=== PATIENT | male | born 1975 | race Caucasian/White ===

== ENCOUNTER 2016-06-10 08:16 | Observation (INO) | payer OTHER ==
[2016-05-27 14:40] LABS: BASO % 0.2 %; BASO ABS # 0.02 K/uL (0-0.2); COMPLETE YES; EOS % 0.8 %; HEMATOCRIT 41.6 % (42-52); IG% 0.2 %; LYMPH ABS # 2.18 K/uL (1.2-3.4); MEAN CELL VOLUME 89.8 fL (80-100); MEAN CORPUSCULAR HEMOGLOBIN 30.5 pg (25-34); MEAN CORPUSCULAR HGB CONC 33.9 g/dl (32-36); MEAN PLATELET VOLUME 10.1 fL (7.4-10.4); MONO % 6.3 %; NEUT % 68.5 %; PLATELET COUNT 252 K/uL (130-400); RED BLOOD COUNT 4.63 M/uL (4.7-6.1); WHITE BLOOD COUNT 9.07 K/uL (4.8-10.8)
--- NOTE | 2016-06-09 14:07 | HISTORY & PHYSICAL EXAMINATION ---
DATE OF ADMISSION: 06/10/2016 CHIEF COMPLAINT: He presents with low back pain with lower extremity difficulty with numbness and weakness. HISTORY OF PRESENT ILLNESS: Butch is a 41-year-old male with lower extremity back pain with some right leg numbness and tingling, a little bit of weakness as well. We have been following him for 3 years in duration now. We had done a procedure back here just recently and he has recovered pretty well with that. He recently just had some low back pain with the associated weakness and numbness in his leg. We worked him up with a myelogram. It does show a large disk herniation at L5-S1 on the left hand side, which is his operated level. More than likely the only explanation is some disk material has reherniated out of his involved segment at the spine, causing some nerve root compression at the L5-S1 level on the left neural foramen. PAST MEDICAL HISTORY: All negative. PAST SURGICAL HISTORY: Includes a hernia repair, bilateral knee surgeries, previous procedure L5-S1. ALLERGIES: PENICILLIN. CURRENT MEDICATIONS: Include tramadol and Colace. FAMILY HISTORY: Positive for heart disease, stroke. Negative for diabetes, blood clots, DVTs. SOCIAL HISTORY: He is single. Rarely drinks. Smokes about a 1/2 pack of cigarettes a day. Actually half can of chewing tobacco a day for 20 years. REVIEW OF SYSTEMS: CONSTITUTIONAL: Positive for fatigue. CARDIOVASCULAR: Positive for swelling in hands and feet. GASTROINTESTINAL: Positive for change in bowel movements. NEUROLOGICAL: Positive for numbness and tingling. MUSCULOSKELETAL: Positive for joint pain, stiffness, weakness, and cramps. PHYSICAL EXAMINATION: CONSTITUTIONAL: Alert and oriented x3, appropriately dressed for his age. VITAL SIGNS: He is 6 foot 3 inches, 300 pounds. CARDIAC: Brisk capillary refill in distal extremities. RESPIRATORY: Equal bilateral breath sounds. ABDOMEN: Soft, nontender to palpation. No hepato or organomegaly noted. INTEGUMENTARY: No skin rashes or lesions. No redness, swelling. MUSCULOSKELETAL: He does have some paresthesias and numbness and tingling down his left leg. He has some weakness of the left great toe as well as with push off strength on the left hand side. He also has a positive Lasgue sign with straight leg raise, raising on the left hand side. He has difficult time coming up to a full upright position. DIAGNOSTIC STUDIES: No x-rays done today. CT myelogram is fairly impressive this demonstrating cauda equina compression, nerve root compromise at L5-S1 due to a disk herniation affecting the left neural foramen. 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 PLAN: At this time, we are going to get him ready for preop. We have offered him laminectomy with a diskectomy at L5-S1 to remove that herniated segment affecting the left nerve root at that level. We did discuss the procedure with him. He wants to go through with that. Does understand all the risks and possible benefits of the surgery. We did discuss expectations postoperatively as well. We will follow him up approximately 10-14 days postop and remove sutures and renew any pain medication. We will discuss physical therapy at that time as well. KEMAL
[~2016-06-10] VITALS: Ht 190.5 cm; Wt 140.0 kg
[2016-06-10] VITALS (8 sets, daily range): BP systolic 101–137; BP diastolic 55–93; PULSE 64–109; TEMP 36.5–36.9; O2SAT 93–97; Ht 190.5 cm; Wt 140.0 kg
[~2016-06-10 08:16] MED LIST: CLINDAMYCIN 600 MG/54 ML D5W IV SCH; SODIUM CHLORIDE 0.9% 1000ML 1,000 ML IV SCH; TRAM-453 PO; oxycodone PO
[2016-06-10] MEDS ORDERED: MIDAZOLAM HCL 1 MG/ML 2ML VIAL ONE (08:55)
[2016-06-10] MEDS ORDERED: FENTANYL CITRATE INJ 50 MCG/1 ML 2 ML VIAL ONE ×2 (08:55)
--- NOTE | 2016-06-10 10:21 | History & Physical Bridge Note ---
H&P Re-Evaluation Bridge Note: I have examined the patient, reviewed the History & Physical and in the interval since the performance of the History & Physical I have noted the following changes of clinical significance: No changes noted
[2016-06-10] MEDS ORDERED: PROPOFOL IV EMULSION 10 MG/ML 20 ML VIAL IV ONE (11:27)
[2016-06-10] MEDS ORDERED: SUCCINYLCHOLINE CHLORIDE 20 MG/ML 10 ML VIAL IV ONE (11:27)
[2016-06-10] MEDS ORDERED: ONDANSETRON INJ 2 MG/ML 2 ML VIAL ONE (11:27)
[2016-06-10] MEDS ORDERED: LIDOCAINE HCL 2% 2 ML VIAL (20MG/ML) ONE (11:27)
[2016-06-10] MEDS ORDERED: NEOSTIGMINE METHYLSULFATE 5 MG/5 ML SYR ONE (11:27)
[2016-06-10] MEDS ORDERED: GLYCOPYRROLATE INJ 0.2 MG/ML VIAL ONE (11:27)
[2016-06-10] MEDS ORDERED: CISATRACURIUM BESYLATE IV SOLN 2 MG/ML 10 ML VIAL ONE (11:27)
[2016-06-10] MEDS ORDERED: DEXAMETHASONE SOD INJ 4 MG/ML VIAL ONE (11:27)
[2016-06-10] MEDS ORDERED: LARYING-O-JET KIT (LTA) EXT ONE ×2 (11:27)
[2016-06-10] MEDS ORDERED: HYDROmorphone INJ 2 MG/ML SYR/VIAL ONE ×2 (11:28→13:00)
[2016-06-10] MEDS ORDERED: THROMBIN FOR SOLN 20000 UNIT KIT TOP ONE (12:35)
[2016-06-10] MEDS ORDERED: GELATIN SPONGE SZ 100 TOP ONE (12:36)
[2016-06-10] MEDS ORDERED: BUPIVACAINE/EPINEPHRINE 0.5% MPF 1:200,000 30 ML VIAL INJ ONE (12:37)
[2016-06-10] MEDS ORDERED: BACITRACIN 50000 UNIT VIAL IR ONE (12:37)
[2016-06-10] MEDS ORDERED: VANCOMYCIN HCL 1000MG/20ML VIAL TOP ONE (12:41)
--- NOTE | 2016-06-10 12:49 | [facility] Post Operative Brief Note ---
Immediate Operative Summary Operative Date Jun 10, 2016. 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 Procedure(s) Performed L5-S1 Revision Discectomy, hardware removal at L5-S1 on left Surgeon Dr. Michele Martines Dynamometer Repairer Surgeon(s) Yonny Arguello PA-C Estimated Blood Loss 200ml Findings stenosis , disc herniation Specimens A. Explanted hardware Complication(s) None Disposition Recovery Room / PACU
[2016-06-10] MEDS ORDERED: LORAZEPAM INJ 1 MG in SYRINGE 0.5 ML IV PRN (13:00)
[2016-06-10] MEDS ORDERED: PROMETHAZINE HCL INJ 12.5 MG in SODIUM CHLORIDE 0.9% 50ML 50 ML IV PRN ×4 (13:00)
[2016-06-10] MEDS ORDERED: MAGNESIUM HYDROXIDE SUSP 30 ML UDC PO PRN (13:00)
[2016-06-10] MEDS ORDERED: NALOXONE HCL 0.4 MG/1 ML VIAL/CARP IV PRN (13:00)
[2016-06-10] MEDS ORDERED: METOCLOPRAMIDE HCL INJ 5 MG/ML 2 ML VIAL IV PRN (13:00)
[2016-06-10] MEDS ORDERED: OXYCODONE/ACETAMINOPHEN 5-325 TAB PO PRN ×2 (13:00)
[2016-06-10] MEDS ORDERED: HYDROmorphone INJ 1 MG/ML SYR IV PRN ×2 (13:00)
[2016-06-10] MEDS ORDERED: EpHEDrine SULFATE INJ 50 MG/ML AMP IV PRN (13:00)
[2016-06-10] MEDS ORDERED: ONDANSETRON INJ 2 MG/ML 2 ML VIAL IV PRN (13:00)
[2016-06-10] MEDS ORDERED: ATROPINE SULFATE 0.1 MG/ML 5ML SYR IV PRN (13:00)
[2016-06-10] MEDS ORDERED: ACETAMINOPHEN 325 MG TAB PO PRN (13:00)
[2016-06-10] MEDS ORDERED: LORAZEPAM 1 MG TAB PO PRN (13:00)
[2016-06-10] MEDS ORDERED: FLUMAZENIL 0.1 MG/1 ML 10 ML VIAL IV PRN (13:00)
--- NOTE | 2016-06-10 13:44 | OPERATIVE REPORT ---
DATE OF OPERATION: 06/10/2016 PREOPERATIVE DIAGNOSIS: Disc herniation, bone osteophyte formation, L5-S1 lumbar spine. POSTOPERATIVE DIAGNOSIS: Same. PROCEDURES: Included a lumbar spine decompression revision strategies to lumbar spine, foraminotomy of L5 and S1, removal of osteophyte impinging on the 5 nerve root. SURGEON: Dr. Martines. PATIENT SITTER: Yonny Arguello. COMPLICATIONS: Zero. BLOOD LOSS: Less than 200 mL. ANESTHETIC: General. DESCRIPTION OF PROCEDURE: The patient was taken to the operating room, a general intubated anesthetic provided to the patient, placed prone, prepped and draped sterile. We made a skin incision in his old skin incision essentially, dissecting on the same plane down to the lamina, transverse processes. Over the prior pedicle screws that had been inserted, we put in a deep self-retaining retractor. We then used revision techniques to open up the dural area. We did foraminotomies of L5, foraminotomies of S1. I used an osteotome to knock off some of the bone that had ingrown into the nerve root. It almost appeared he possibly had an old fracture with bone impinging on the nerve root. There was some disc material. We completely freed up the 5 nerve root, completely freed up the S1 nerve root, we did remove the bone. I was pleased with the decompression at the conclusion. We then irrigated, closed in layers with #1 Vicryl suture, 2-0 in the subcuticular layer, and 3-0 nylon on the skin. Sterile dressing applied. The patient returned to recovery room satisfactory and stable. No apparent complications. Sponge and needle count correct. I attest to the content of the Intraoperative Record and any orders documented therein. Any exceptio ns are noted below.
--- NOTE | 2016-06-10 13:50 | Anesthesiology Progress Note ---
Anesthesia Post Op Note Date & Time Jun 10, 2016 at 13:49 Vital Signs Pain Intensity: 2 Vital Signs Past 12 Hours Date Time Temp Pulse Resp B/P Pulse Ox O2 Delivery O2 Flow Rate FiO2 06/10/16 13:43 123/87 06/10/16 13:41 88 17 98 06/10/16 13:41 86 17 06/10/16 13:39 115/65 06/10/16 13:36 63 12 06/10/16 13:36 62 12 97 06/10/16 13:33 133/85 06/10/16 13:31 67 11 06/10/16 13:31 68 11 98 06/10/16 13:29 109/61 06/10/16 13:26 90 16 06/10/16 13:26 90 16 97 06/10/16 13:24 101/76 06/10/16 13:21 86 15 97 06/10/16 13:21 88 15 06/10/16 13:20 36.5 06/10/16 13:17 19 06/10/16 13:17 80 19 99 06/10/16 13:14 126/91 06/10/16 13:12 16 94 06/10/16 13:12 85 16 06/10/16 13:08 133/87 06/10/16 13:07 79 15 06/10/16 13:07 79 15 100 06/10/16 13:04 124/79 06/10/16 13:02 73 13 100 06/10/16 13:02 73 13 06/10/16 13:00 Nasal Cannula 4 06/10/16 12:59 127/80 06/10/16 12:57 78 16 06/10/16 12:57 77 16 100 06/10/16 12:53 122/83 06/10/16 12:52 80 16 06/10/16 12:52 80 16 100 06/10/16 12:48 117/77 06/10/16 12:47 80 14 98 06/10/16 12:47 79 14 06/10/16 12:47 36.1 94 16 110/79 97 Mask 10 06/10/16 08:54 36.9 75 20 137/93 95 Room Air Notes Mental Status: alert / awake / arousable, participated in evaluation Pt Amnestic to Procedure: Yes Nausea / Vomiting: adequately controlled Pain: adequately controlled Airway Patency, RR, SpO2: stable & adequate BP & HR: stable & adequate Hydration State: stable & adequate Anesthetic Complications: no major complications apparent
[2016-06-10] MEDS ORDERED: IV FLUIDS COMPLETED PRN (14:15)
[2016-06-10] MEDS ORDERED: SODIUM CHLORIDE 0.9% 1000ML 1,000 ML IV SCH (15:00)
[2016-06-10] MEDS: HYDROmorphone INJ 2 MG/ML SYR/VIAL IV PRN ×2 (15:15→22:59)
[2016-06-10] MEDS: KETOROLAC TROMETHAMINE 30 MG/ML VIAL IV SCH ×2 (15:37→21:31)
[2016-06-10] MEDS: CLINDAMYCIN IV 600 MG in DEXTROSE 5% ADD-VANTAGE 50ML 50 ML IV SCH (17:54)
[2016-06-10] MEDS: DEXAMETHASONE INJ 10 MG in SYRINGE 0 ML IV SCH (17:55)
[2016-06-10] MEDS ORDERED: NURSING VERBAL MED ORDER ONE (19:15)
[2016-06-10] MEDS ORDERED: COUGH DROP (SUGAR FREE) LOZ 24 LOZ/1 BOX ONE (23:25)
[2016-06-10] MEDS ORDERED: NURSING DECISION MEDICATION ORDER SCH (23:30)
[2016-06-11] MEDS ORDERED: COUGH DROP (SUGAR FREE) LOZ 24 LOZ/1 BOX PO PRN (00:30)
[2016-06-11] MEDS: CLINDAMYCIN IV 600 MG in DEXTROSE 5% ADD-VANTAGE 50ML 50 ML IV SCH (01:45)
[2016-06-11] MEDS: DEXAMETHASONE INJ 10 MG in SYRINGE 0 ML IV SCH ×2 (01:45→09:03)
[2016-06-11] MEDS: KETOROLAC TROMETHAMINE 30 MG/ML VIAL IV SCH ×2 (03:41→09:03)
[2016-06-11 03:52] VITALS: BP 119/55; PULSE 91; TEMP 36.7; O2SAT 92
[2016-06-11] MEDS ORDERED: BISACODYL 5 MG TABEC PO PRN (06:00)
[2016-06-11] MEDS ORDERED: BISACODYL 10 MG SUPP PR PRN (06:00)
--- NOTE | 2016-06-11 07:34 | Discharge Instructions ---
Discharge Instructions Admission Reason for Admission: Lumbar Intervertebral Disc Disorder W/Myelopathy Discharge Discharge Diagnosis / Problem: stenosis Discharge Goals Goal(s): Improve function Activity Recommendations Activity Limitations: as noted below Lifting Limitations: no more than 5 pounds Exercise/Sports Limitations: until after follow-up appointment May Resume Sexual Activity: after follow-up appointment Shower/Bathe: keep incision dry Driving or Machine Use: home, rest, recover . Current Hospital Diet Patient's current hospital diet: Regular Diet Discharge Diet Recommended Diet: Regular Diet Fluid Restriction: None Procedures Procedures Performed: L5-S1 Revision Discectomy, hardware removal at L5-S1 on left Pending Studies Studies pending at discharge: no Medical Emergencies . Who to Call and When: Medical Emergencies: If at any time you feel your situation is an emergency, please call 911 immediately. . Non-Emergent Contact Non-Emergency issues call your: Surgeon Call Non-Emergent contact if: your pain is unusual for you . "Provider Documentation" section prepared by Michele Martines. VTE Core Measure Inpt VTE Proph given/why not?: Treatment not indicated
--- NOTE | 2016-06-11 07:36 | Discharge Instructions ---
Discharge Instructions Admission Reason for Admission: Lumbar Intervertebral Disc Disorder W/Myelopathy Discharge Discharge Diagnosis / Problem: stenosis Discharge Goals Goal(s): Improve function Activity Recommendations Activity Limitations: as noted below Exercise/Sports Limitations: until after follow-up appointment May Resume Sexual Activity: after follow-up appointment Shower/Bathe: keep incision dry Driving or Machine Use: home , rest, recover . Current Hospital Diet Patient's current hospital diet: Regular Diet Discharge Diet Recommended Diet: Regular Diet Fluid Restriction: None Procedures Procedures Performed: L5-S1 Revision Discectomy, hardware removal at L5-S1 on left Pending Studies Studies pending at discharge: no Medical Emergencies . Who to Call and When: Medical Emergencies: If at any time you feel your situation is an emergency, please call 911 immediately. . Non-Emergent Contact Non-Emergency issues call your: Surgeon Call Non-Emergent contact if: your pain is worsening . "Provider Documentation" section prepared by Michele Martines. VTE Core Measure Inpt VTE Proph given/why not?: Treatment not indicated
[2016-06-11 07:46] VITALS: BP 129/62; PULSE 80; TEMP 36.6; O2SAT 94
[2016-06-11 07:50] VITALS: O2SAT 94
--- NOTE | 2016-06-11 07:53 | DISCHARGE SUMMARY ---
HOSPITAL COURSE: Improved stable at this point in time. No chest pain, shortness of breath, confusion. 36.7 temperature. Laboratory work not indicated. Neurologically intact. IMPRESSION: Status post lumbar spine stenosis surgery, improved, stable. DISPOSITION: We will discharge home later on today. Instructions, precautions given. Dressings will be changed. He has medication on his chart. Careful with bending, stooping, lifting, allow a lot of time to heal. I anticipate he will be stable to be discharged sometime after 2:00 p.m. today.
--- NOTE | 2016-06-11 08:58 | Anesthesiology Progress Note ---
Anesthesia Post Op Note Date & Time Jun 11, 2016 at 08:57 Vital Signs Pain Intensity: 7.0 Vital Signs Past 12 Hours Date Time Temp Pulse Resp B/P Pulse Ox O2 Delivery O2 Flow Rate FiO2 06/11/16 07:50 94 Room Air 06/11/16 07:46 36.6 80 18 129/62 94 Room Air 06/11/16 07:00 Room Air 06/11/16 03:52 36.7 91 16 119/55 92 Room Air 06/10/16 23:23 36.5 87 16 134/66 96 Room Air 06/10/16 23:20 Room Air Notes Mental Status: alert / awake / arousable, participated in evaluation Pt Amnestic to Procedure: Yes Nausea / Vomiting: adequately controlled Pain: adequately controlled Airway Patency, RR, SpO2: stable & adequate BP & HR: stable & adequate Hydration State: stable & adequate Anesthetic Complications: no major complications apparent
[2016-06-11] MEDS ORDERED: POLYETHYLENE (MIRALAX) 17 GM PACK PO SCH (09:00)
[2016-06-11 09:50] VITALS: BP 129/62; PULSE 80; TEMP 36.6; O2SAT 94
[2016-06-11 11:37] VITALS: BP 132/66; PULSE 79; TEMP 36.6; O2SAT 95
[2016-12-31] MEDS ORDERED: IBUP-1050 PO (11:49)
[2016-12-31] MEDS ORDERED: OXYC-57 PO (11:49)
== END 2016-06-11 14:30 | disposition home or self-care (01) ==
LOC: ENRESERVDT → ENRESERVTM → C.ACU 08:16 → C.3E 12:51
PROVIDERS: ADMIT Orthopaedic Surgery Orthopaedic Surgery of the Spine; ATTEND Orthopaedic Surgery Orthopaedic Surgery of the Spine
DX: M51.27 Other intervertebral disc displacement, lumbosacral region (principal); F17.210 Nicotine dependence, cigarettes, uncomplicated